=== PATIENT | female | born 1965 | race African-American/Black ===

== ENCOUNTER 2017-04-04 11:00 | Inpatient (IN) | payer OTHER ==
[2017-04-04 14:50] VITALS: BMI 25.8
--- NOTE | 2017-04-04 16:47 | HP ---
CIWA Score - CIWA Score Nausea/Vomitin-Mild Nausea/No Vomiting Muscle Tremors: 4-Moderate,w/Arms Extend Anxiety: 4-Mod. Anxious/Guarded Agitation: 4-Moderately Restless Paroxysmal Sweats: 1-Minimal Palms Moist Orientation: 0-Oriented Tacttile Disturbances: 0-None Auditory Disturbances: 0-None Visual Disturbances: 1-Very Mild Sensitivity (right eye cataract scheduled to be removed) Headache: 0-None Present CIWA-Ar Total Score: 15 Admission [facility] - HPI Chief Complaint: withdrawal sx Allergies/Adverse Reactions: Allergies Allergy/AdvReac Type Severity Reaction Status Date / Time No Known Allergies Allergy Verified 04/04/17 16:15 History of Present Illness: 51 years old female with long history of alcohol cocaine dependence, had left eye cataract removed 03/30/17, treated with predfort 1%, denies mental illness is admitted to detox Exam Limitations: No Limitations - Ebola screening Have you traveled outside of the country in the last 21 days: No Have you had contact with anyone from an Ebola affected area: No Have you been sick,other than usual withdrawal symptoms: No Do you have a fever: No - Review of Systems Constitutional: Chills, Changes in sleep, Weight Stable EENT: reports: Cataracts (right eye) Respiratory: reports: No Symptoms reported Cardiac: reports: No Symptoms Reported GI: reports: Nausea, Poor Fluid Intake, Abdominal cramping : reports: No Symptoms Reported Musculoskeletal: reports: No Symptoms Reported Endocrine: reports: No Symptoms Reported Hematology: reports: No Symptoms Reported Psychiatric: reports: Judgement Intact, Mood/Affect Appropiate, Orientated x3 Other Systems: Reviewed and Negative Patient History - Patient Medical History Hx Anemia: No Hx Asthma: No Hx Chronic Obstructive Pulmonary Disease (COPD): No Hx Cancer: No Hx Cardiac Disorders: No Hx Congestive Heart Failure: No Hx Hypertension: No Hx Hypercholesterolemia: No Hx Pacemaker: No HX Cerebrovascular Accident: No Hx Seizures: No Hx Dementia: No Hx Diabetes: No Hx Gastrointestinal Disorders: No Hx Liver Disease: No Hx Genitourinary Disorders: No Hx Sexually Transmitted Disorders: No Hx Renal Disease (ESRD): No Hx Thyroid Disease: No Hx Human Immunodeficiency Virus (HIV): No Hx Hepatitis C: No Hx Depression: No Hx Suicide Attempt: No Hx Bipolar Disorder: No Hx Schizophrenia: No - Patient Surgical History Past Surgical History: No Hx Neurologic Surgery: No Hx Cataract Extraction: Yes (03/30/17 left eye) Hx Cardiac Surgery: No Hx Lung Surgery: No Hx Breast Surgery: No Hx Breast Biopsy: No Hx Abdominal Surgery: No Hx Appendectomy: No Hx Cholecystectomy: No Hx Genitourinary Surgery: No Hx Section: No Hx Orthopedic Surgery: No Hx Hysterectomy: No Anesthesia Reaction: No - PPD History Previous Implant?: Yes Documented Results: Negative w/o proof Implanted On Prior [facility] Admission?: Yes Date: 01/16/15 Results: 0 mm PPD to be Administered?: Yes - Reproductive History Patient is a Female of Child Bearing Age (11 -55 yrs old): Yes Last Menstrual Period: 02/02/17 Patient : No - Smoking Cessation Smoking history: Never smoked Have you smoked in the past 12 months: No Hx Chewing Tobacco Use: No Initiated information on smoking cessation: No - Substance & Tx. History Hx Alcohol Use: Yes Hx Substance Use: Yes Substance Use Type: Alcohol, Cocaine Hx Substance Use Treatment: Yes Family Disease History - Family Disease History Family Disease History: Heart Disease: Sister (alcohol dependence ), CA: Mother (alcohol dependence ), Other: Father (alcohol dependence ), Mother, Brother ( alcohol dependence, HIV+), Sister Admission Physical Exam BHS - Vital Signs Vital Signs: Vital Signs - 24 hr 04/04/17 14:47 Temperature 96.4 F L Pulse Rate 67 Respiratory 20 Rate Blood Pressure 94/68 - Physical General Appearance: Yes: Nourished, Appropriately Dressed, Mild Distress, Tremorous, Irritable, Sweating, Anxious HEENTM: Yes: Hearing grossly Normal, Normal ENT Inspection, Normocephalic, Normal Voice Respiratory: Yes: Chest Non-Tender, Lungs Clear, Normal Breath Sounds, No Respiratory Distress, No Accessory Muscle Use Neck: Yes: Supple, Trachea in good position Breast: Yes: Breasts Symetrical Cardiology: Yes: Regular Rhythm, S1, S2, Bradycardia Abdominal: Yes: Non Tender, Soft Genitourinary: Yes: Within Normal Limits Back: Yes: Normal Inspection Musculoskeletal: Yes: full range of Motion, Gait Steady Extremities: Yes: Normal Inspection, Normal Range of Motion, Non-Tender, Tremors Neurological: Yes: Fully Oriented, Alert, Motor Strength 5/5, Normal Mood/Affect , Normal Response Integumentary: Yes: Warm Lymphatic: Yes: Within Normal Limits - Diagnostic (1) Alcohol dependence with uncomplicated withdrawal Current Visit: Yes Status: Acute (2) Cocaine dependence, uncomplicated Current Visit: Yes Status: Chronic BHS Breath Alcohol Content Breath Alcohol Content: 0 Urine Pregancy Test - Result Urine Test Results: Negative- NO Line Present Urine Drug Screen - Results Drug Screen Negative: No Urine Drug Screen Results: LINDA-Cocaine
[2017-04-04] MEDS ORDERED: hydrOXYzine PAMOATE 50 MG CAPSULE (FP) PO PRN (16:50)
[2017-04-04] MEDS ORDERED: guaiFENesin/D-METHORPHAN HB 10 ML UNIT-DOSE CUPS PO PRN (16:50)
[2017-04-04] MEDS ORDERED: MENTHOL/PHENOL 1 EACH UD MM PRN (16:50)
[2017-04-04] MEDS ORDERED: IBUPROFEN 400 MG TABLET (FP) PO PRN (16:50)
[2017-04-04] MEDS ORDERED: MAGNESIUM CITRATE 300 ML BOTTLE PO PRN (16:50)
[2017-04-04] MEDS ORDERED: MAGNESIUM HYDROX 2400MG/30ML ORAL SUSPENSION 30 ML CUP PO PRN (16:50)
[2017-04-04] MEDS ORDERED: MAG HYDROX/AL HYDROX/SIMETH 30 ML UNIT-DOSE CUP PO PRN (16:50)
[2017-04-04] MEDS ORDERED: chlordiazePOXIDE HCL 25 MG CAPSULE PO PRN (16:50)
[2017-04-04] MEDS ORDERED: ACETAMINOPHEN 325 MG TABLET (FP) PO PRN (16:50)
[2017-04-04] MEDS ORDERED: LOPERAMIDE HCL 2 MG CAPSULE PO PRN (16:50)
[2017-04-04 22:27] LABS: URINE APPEARANCE CLEAR; URINE BILIRUBIN NEGATIVE (NEGATIVE); URINE BLOOD NEGATIVE (NEGATIVE); URINE COLOR LTYELLOW; URINE GLUCOSE (UA) NEGATIVE (NEGATIVE); URINE KETONE NEGATIVE (NEGATIVE); URINE LEUK ESTERASE NEGATIVE (NEGATIVE); URINE NITRITE NEGATIVE (NEGATIVE); URINE PROTEIN NEGATIVE (NEGATIVE); URINE UROBILINOGEN NEGATIVE E.U./dl (0.2-1.0)
[2017-04-04] MEDS: chlordiazePOXIDE HCL 25 MG CAPSULE PO SCH (23:01)
[2017-04-04] MEDS: prednisoLONE ACETATE 1% OPHTH SUSP 5 ML BOTTLE OS SCH (23:01)
[2017-04-04] MEDS: MINERAL OIL/PETROLAT/WATER TOPICAL CREAM 113 GM JAR TP SCH (23:01)
[2017-04-04] MEDS: THIAMINE HCL 100 MG TABLET (FP) PO SCH (23:02)
[2017-04-05] MEDS: chlordiazePOXIDE HCL 25 MG CAPSULE PO SCH ×4 (05:44→23:03)
[2017-04-05 09:54] LABS: MCH 27.2 pg (25.7-33.7); MCHC 32.5 g/dl (32.0-36.0); MEAN CELL VOLUME 83.6 fl (80-96); MEAN PLT VOLUME 9.6 fl (7.5-11.1); PLATELET COUNT 254 K/MM3 (134-434); RDW 16.8 % (11.6-15.6); WHITE BLOOD COUNT 4.7 K/mm3 (4.0-10.0)
--- NOTE | 2017-04-05 10:16 | PN ---
S CIWA - CIWA Score Nausea/Vomitin-No Nausea/No Vomiting Muscle Tremors: 4-Moderate,w/Arms Extend Anxiety: 3 Agitation: 4-Moderately Restless Paroxysmal Sweats: 3 Orientation: 0-Oriented Tacttile Disturbances: 0-None Auditory Disturbances: 0-None Visual Disturbances: 0-None Headache: 0-None Present CIWA-Ar Total Score: 14 BHS Progress Note (SOAP) Subjective: sweats shakes interrupted sleep agitation tired Objective: 04/05/17 10:14 Vital Signs Temperature 97.9 F 04/05/17 10:09 Pulse Rate 73 04/05/17 10:09 Respiratory Rate 16 04/05/17 10:09 Blood Pressure 141/61 04/05/17 10:09 O2 Sat by Pulse Oximetry (%) Laboratory Tests 04/04/17 04/05/17 21:45 06:00 WBC 4.7 RBC 4.30 Hgb 11.7 D Hct 35.9 D MCV 83.6 D MCHC 32.5 RDW 16.8 H D Plt Count 254 MPV 9.6 D Urine Color Ltyellow Urine Appearance Clear Urine pH 7.0 Urine Protein Negative Urine Glucose (UA) Negative Urine Ketones Negative Urine Blood Negative Urine Nitrite Negative Urine Bilirubin Negative Urine Urobilinogen Negative Ur Leukocyte Esterase Negative labs pending awake/alert ambulating no acute distress Assessment: 04/05/17 10:15 withdrawal sx Plan: continue detox increase fluids labs pending
[2017-04-05] MEDS: PRENATAL VITAMINS W/ FOLIC ACID TABLET (FP) PO SCH (10:30)
[2017-04-05] MEDS: prednisoLONE ACETATE 1% OPHTH SUSP 5 ML BOTTLE OS SCH ×2 (10:31→23:03)
[2017-04-05 10:50] LABS: ALBUMIN 4.1 g/dl (3.4-5.0); BILIRUBIN,TOTAL 0.3 mg/dL (0.2-1.0); CALCIUM 9.7 mg/dL (8.5-10.1); COCKROFT - GAULT 74.5365; TOT PROT 8.2 g/dl (6.4-8.2)
--- NOTE | 2017-04-05 11:43 | EKG ---
Test Reason : Blood Pressure : / mmHG Vent. Rate : 063 BPM Atrial Rate : 063 BPM P-R Int : 162 ms QRS Dur : 082 ms QT Int : 464 ms P-R-T Axes : 061 036 061 degrees QTc Int : 474 ms NORMAL SINUS RHYTHM NONSPECIFIC T WAVE ABNORMALITY PROLONGED QT ABNORMAL ECG WHEN COMPARED WITH ECG OF 15-JAN-2015 22:35, SINUS RHYTHM HAS REPLACED ATRIAL FLUTTER Confirmed by ANALISA RODRIGUEZ, MARKIE ([id number]) on 04/05/2017 11:43:25 AM Referred By: Confirmed By:MARKIE HAUSER MD
[2017-04-05] MEDS: P-EPHED 60MG/TRIPROLIDI 2.5MG TABLET PO PRN (12:31)
[2017-04-05] MEDS: THIAMINE HCL 100 MG TABLET (FP) PO SCH (23:03)
[2017-04-05] MEDS: MINERAL OIL/PETROLAT/WATER TOPICAL CREAM 113 GM JAR TP SCH (23:03)
[2017-04-06] MEDS: chlordiazePOXIDE HCL 25 MG CAPSULE PO SCH ×3 (07:52→17:07)
[2017-04-06] MEDS: PRENATAL VITAMINS W/ FOLIC ACID TABLET (FP) PO SCH (11:01)
[2017-04-06] MEDS: prednisoLONE ACETATE 1% OPHTH SUSP 5 ML BOTTLE OS SCH ×2 (11:02→22:04)
[2017-04-06] MEDS: POTASSIUM CHLORIDE TABS 20 MEQ TABLET.ER (FP) PO SCH (11:02)
--- NOTE | 2017-04-06 11:05 | PN ---
[facility] CIWA - CIWA Score Nausea/Vomitin-No Nausea/No Vomiting Muscle Tremors: 3 Anxiety: 3 Agitation: 3 Paroxysmal Sweats: 3 Orientation: 0-Oriented Tacttile Disturbances: 0-None Auditory Disturbances: 0-None Visual Disturbances: 0-None Headache: 0-None Present CIWA-Ar Total Score: 12 S Progress Note (SOAP) Subjective: sweats agitation little shakes Objective: 04/06/17 11:05 Vital Signs Temperature 97.1 F L 04/06/17 09:44 Pulse Rate 78 04/06/17 09:44 Respiratory Rate 18 04/06/17 09:44 Blood Pressure 159/98 04/06/17 09:44 O2 Sat by Pulse Oximetry (%) Laboratory Tests 04/04/17 04/05/17 04/05/17 21:45 06:00 06:00 WBC 4.7 RBC 4.30 Hgb 11.7 D Hct 35.9 D MCV 83.6 D MCHC 32.5 RDW 16.8 H D Plt Count 254 MPV 9.6 D Sodium 141 Potassium 3.4 L Chloride 101 Carbon Dioxide 29 Anion Gap 11 BUN 14 D Creatinine 1.0 D Creat Clearance w eGFR 58.00 Random Glucose 81 Calcium 9.7 Total Bilirubin 0.3 D AST 26 D ALT 22 D Alkaline Phosphatase 91 Total Protein 8.2 D Albumin 4.1 D Urine Color Ltyellow Urine Appearance Clear Urine pH 7.0 Ur Specific [place] 1.015 Urine Protein Negative Urine Glucose (UA) Negative Urine Ketones Negative Urine Blood Negative Urine Nitrite Negative Urine Bilirubin Negative Urine Urobilinogen Negative Ur Leukocyte Esterase Negative RPR Titer 04/05/17 06:00 WBC RBC Hgb Hct MCV MCHC RDW Plt Count MPV Sodium Potassium Chloride Carbon Dioxide Anion Gap BUN Creatinine Creat Clearance w eGFR Random Glucose Calcium Total Bilirubin AST ALT Alkaline Phosphatase Total Protein Albumin Urine Color Urine Appearance Urine pH Ur Specific [place] Urine Protein Urine Glucose (UA) Urine Ketones Urine Blood Urine Nitrite Urine Bilirubin Urine Urobilinogen Ur Leukocyte Esterase RPR Titer Nonreactive potassium 3.4;k-dur 20meq x 4 days awake/alert ambulating no acute distress Assessment: 04/06/17 11:06 withdrawal sx Plan: continue detox increase fluids k-dur ordered
[2017-04-06] MEDS: diphenhydrAMINE HCL 50 MG CAPSULE PO PRN (22:04)
[2017-04-06] MEDS: THIAMINE HCL 100 MG TABLET (FP) PO SCH (22:06)
[2017-04-06] MEDS: chlordiazePOXIDE 5 MG CAPSULE PO SCH (22:06)
[2017-04-06] MEDS: P-EPHED 60MG/TRIPROLIDI 2.5MG TABLET PO PRN (22:06)
[2017-04-06] MEDS: MINERAL OIL/PETROLAT/WATER TOPICAL CREAM 113 GM JAR TP SCH (22:49)
[2017-04-07] MEDS: chlordiazePOXIDE 5 MG CAPSULE PO SCH ×3 (06:46→18:21)
--- NOTE | 2017-04-07 10:27 | PN ---
BHS Progress Note (SOAP) Subjective: tired irritable rash on my back Objective: 04/07/17 10:26 Vital Signs Temperature 97.5 F L 04/07/17 10:13 Pulse Rate 63 04/07/17 10:13 Respiratory Rate 16 04/07/17 10:13 Blood Pressure 112/78 04/07/17 10:13 O2 Sat by Pulse Oximetry (%) awake/alert ambulating no acute distress Assessment: 04/07/17 10:26 withdrawal sx Plan: continue detox increase fluids hydrocortizone cream
[2017-04-07] MEDS: POTASSIUM CHLORIDE TABS 20 MEQ TABLET.ER (FP) PO SCH (10:33)
[2017-04-07] MEDS: prednisoLONE ACETATE 1% OPHTH SUSP 5 ML BOTTLE OS SCH ×2 (10:33→22:22)
[2017-04-07] MEDS: PRENATAL VITAMINS W/ FOLIC ACID TABLET (FP) PO SCH (10:33)
[2017-04-07] MEDS: HYDROCORTISONE 2.5% LOTION - 1 BOTTLE TP SCH ×3 (14:36→22:26)
[2017-04-07] MEDS: chlordiazePOXIDE HCL 10 MG CAPSULE PO SCH (22:23)
[2017-04-07] MEDS: MINERAL OIL/PETROLAT/WATER TOPICAL CREAM 113 GM JAR TP SCH (22:26)
[2017-04-07] MEDS: diphenhydrAMINE HCL 50 MG CAPSULE PO PRN (22:42)
[2017-04-07] MEDS: THIAMINE HCL 100 MG TABLET (FP) PO SCH (22:45)
[2017-04-08] MEDS: chlordiazePOXIDE HCL 10 MG CAPSULE PO SCH ×2 (05:36→13:58)
[2017-04-08] MEDS: HYDROCORTISONE 2.5% LOTION - 1 BOTTLE TP SCH ×2 (05:45→13:58)
[2017-04-08 06:22] VITALS: BP 130/91; PULSE 73; TEMP 97.7
--- NOTE | 2017-04-08 08:46 | PN ---
S Progress Note (SOAP) Subjective: ALERT,NO COMPLAINT Objective: 04/08/17 08:45 Vital Signs Temperature 97.7 F 04/08/17 06:21 Pulse Rate 73 04/08/17 06:21 Respiratory Rate 20 04/08/17 06:21 Blood Pressure 130/91 04/08/17 06:21 O2 Sat by Pulse Oximetry (%) Assessment: 04/08/17 08:45 DETOX COMPLETED,NO WITHDRAWAL SYMPTOM Plan: DISCHARGE TODAY,FOLLOW UP WITH AFTER CARE PROGRAM ARRANGEMENT
--- NOTE | 2017-04-08 08:48 | DS ---
[facility] Detox Discharge Summary Admission Date: 04/04/17 Discharge Date: 04/08/17 - History Present History: Alcohol Dependence, Cocaine Dependence Additional Comments: FOLLOW UP WITH AFTER CARE PROGRAM ARRANGEMENT - Physical Exam Results Vital Signs: Vital Signs Temperature 97.7 F 04/08/17 06:21 Pulse Rate 73 04/08/17 06:21 Respiratory Rate 20 04/08/17 06:21 Blood Pressure 130/91 04/08/17 06:21 O2 Sat by Pulse Oximetry (%) Pertinent Admission Physical Exam Findings: WITHDRAWAL SYMPTOM - Treatment Hospital Course: Detox Protocol Followed, Detoxed Safely, Responded well, Discharged Condition Good, Rehab Referral Accepted Patient has Accepted a Rehab Referral to: [facility] - Medication Discharge Medications: Ambulatory Orders Prednisolone 1% Ophthalmic [Pred Forte 1% -] 1 drop OS BID 04/04/17 - Diagnosis (1) Alcohol dependence with uncomplicated withdrawal Current Visit: Yes Status: Acute (2) Cocaine dependence, uncomplicated Current Visit: Yes Status: Chronic (3) Hypokalemia Current Visit: Yes Status: Acute - AMA Did Patient Leave Against Medical Advice: No
--- NOTE | 2017-04-08 10:53 | PN ---
Psychiatric Progress Note Vital Signs: Vital Signs Period Temp Pulse Resp BP Sys/Gabriel Pulse Ox Last 24 Hr 97.7 F-99.1 F 73-84 16-20 130-153/71-94 Date of Session: 04/08/17 Chief Complaint:: " I am fine.There is no reason for me to see a psychiatrist." HPI: Case of a 51 y/o AA female admitted to [address] [place] [address] for detox treatment for alcohol and cocaine dependence.She has completed treatment and she was scheduled for transition to rehabilitation treatment at [facility] in [facility].Instead,due to lack of available bed,patient is informed that she will be discharged home.Ms Cole got agitated and,according to counselor,she made threats to hurt her fiance. ROS: Unremarkable.Patient is ambulatory,steady and cognitively intact.No somatic complaints. Current Medications: Active Medications Generic Name Dose Route Start Last Admin Trade Name Freq PRN Reason Stop Dose Admin Acetaminophen 650 mg 04/04/17 16:50 04/07/17 18:20 Tylenol - PO 650 mg Q4H PRN Administration FEVER OR PAIN Al Hydroxide/Mg Hydroxide 30 ml 04/04/17 16:50 Mylanta Oral Suspension - PO Q6H PRN DYSPEPSIA Chlordiazepoxide HCl 10 mg 04/07/17 23:00 04/08/17 05:36 Librium - PO 04/08/17 17:01 10 mg [id number] PAMELLA Administration Diphenhydramine HCl 50 mg 04/04/17 16:50 04/07/17 22:42 Benadryl - PO 50 mg HSMR1 PRN Administration INSOMNIA Eucalyptus/Menthol/Phenol/Sorbitol 1 each 04/04/17 16:50 Cepastat Lozenge - MM Q4H PRN SORE THROAT Guaifenesin 10 ml 04/04/17 16:50 04/05/17 12:30 Robitussin Dm - PO 10 ml Q6H PRN Administration COUGH Hydrocortisone 1 applic 04/07/17 11:00 04/08/17 05:45 Hytone 2.5% Lotion - TP Not Given TID PAMELLA Hydroxyzine Pamoate 50 mg 04/04/17 16:50 Vistaril - PO Q4H PRN AGITATION Ibuprofen 400 mg 04/04/17 16:50 04/07/17 22:23 Motrin - PO 400 mg Q6H PRN Administration SEVERE PAIN Loperamide HCl 4 mg 04/04/17 16:50 Imodium - PO Q6H PRN DIARRHEA Magnesium Citrate 300 ml 04/04/17 16:50 Citroma - PO Q48H PRN CONSTIPATION Magnesium Hydroxide 30 ml 04/04/17 16:50 Milk Of Magnesia - PO DAILY PRN CONSTIPATION Multi-Ingredient Lotion 1 applic 04/04/17 22:00 04/07/17 22:26 Eucerin (Small Jar) - TP 1 applic HS PAMELLA Administration Potassium Chloride 20 meq 04/06/17 10:00 04/07/17 10:33 K-Dur - PO 20 meq DAILY PAMELLA Administration Prednisolone Acetate 1 drop 04/04/17 22:00 04/07/17 22:22 Pred Forte 1% - OS 1 drop BID PAMELLA Administration Multivit/Folic Acid/Iron 1 tab 04/05/17 10:00 04/07/17 10:33 Vitamins (Sjr) - PO 1 tab DAILY PAMELLA Administration Pseudoephedrine/Triprolidine 1 combo 04/04/17 16:50 04/06/17 22:06 Actifed - PO 1 combo TID PRN Administration NASAL CONGESTION Thiamine HCl 100 mg 04/04/17 22:00 04/07/17 22:45 Vitamin B1 - PO 100 mg HS PAMELLA Administration Medication(s) Change(s): No justification for prescriptions for psychtropic medications. Current Side Effect: No Lab tests ordered: No Lab tests reviewed: Yes Provider note:: Called to evaluate this patient in response to staff's report that she has made threats to hurt her fiance.Chart reviewed.Case presented by attending,Dr Mota.Patient is interviewed in the presence of female staff Alesia Archer.She is a good historian.Patient indicates that she felt disappointed by the change in her discharge plans.She wanted to enter rehabilitation treatment and the prospect of returning home at this time upsets her.Ms Cole states that she is angry at her fiance for not joining her in treatment as initially promised.She is concerned about relapsing by going back home where drugs are being used on a daily basis." I am upset with the man for not making an effort to stop using but I never feel like hurting him.This is ridiculous.I have no intention to hurt anyone.People do say things out of anger.I have NOT said that I want to kill him.My anger did not go that far." Patient has no history of psychiatric illness or hospitalizations.Not on psychotropic medications.No history of OPD care.Ms Cole denies history of violence.She indicates that she has been in the current relationship for past nine years and that she depends on Mr Varghese Trinidad for financial support + housing.Patient is appropriate during the interview : calm,coherent,logical and future-oriented.No complaint of perceptual disturbances.Patient denies suicidal or homicidal ideation,intent or plan.Mental status is stable.See report.Ms Cole has allowed this narrative writer to contact Mr Trinidad at [phone] to inform him of her discharge.Call made in presence of the patient.Message left for Mr Trinidad.Patient states that she will contact [facility] for follow up.She is stable for discharge. Total face to face time:: 55 Mental Status Exam - Mental Status Exam Alert and Oriented to: Time, Place, Person Cognitive Function: Good Patient Appearance: Well Groomed (provocatively dressed) Mood: Hopeful, Euthymic Affect: Appropriate, Normal Range Patient Behavior: Appropriate, Cooperative Speech Pattern: Clear, Appropriate Voice Loudness: Normal Thought Process: Intact, Goal Oriented Thought Disorder: Not Present Hallucinations: Denies Suicidal Ideation: Denies Homicidal Ideation: Denies Insight/Judgement: Fair Sleep: Fair Appetite: Good Muscle strength/Tone: Normal Gait/Station: Normal Psychiatric Treatment Plan - Problem List (1) Alcohol dependence Comment: . (2) Cocaine dependence Comment: .
[2017-04-08] MEDS: POTASSIUM CHLORIDE TABS 20 MEQ TABLET.ER (FP) PO SCH (13:58)
[2017-04-08] MEDS: PRENATAL VITAMINS W/ FOLIC ACID TABLET (FP) PO SCH (13:58)
[2017-04-08] MEDS: prednisoLONE ACETATE 1% OPHTH SUSP 5 ML BOTTLE OS SCH (13:58)
== END 2017-04-08 11:00 | disposition home or self-care (01) | DRG 774 ==
LOC: YASAS 11:00 → Y6N 17:02
PROVIDERS: ADMIT Internal Medicine; ATTEND Internal Medicine
PROC: HZ2ZZZZ Detoxification Services for Substance Abuse Treatment (ICD-10-PCS; principal; 2017-04-04)
DX: F10.230 Alcohol dependence with withdrawal, uncomplicated (principal); F14.20 Cocaine dependence, uncomplicated; E87.6 Hypokalemia; R00.1 Bradycardia, unspecified; H26.9 Unspecified cataract
CPT/HCPCS: 36415; 80053; 81003; 85027; 86593; 93005; 93010